=== PATIENT | male | born 1950 | race Hispanic/Latino ===

== ENCOUNTER → 2016-11-20 | Outpatient (CLI) | payer SELFPAY | END | disposition home or self-care (01) | LOC: NUC 08:16 | DX: R07.9 Chest pain, unspecified (principal); I65.29 Occlusion and stenosis of unspecified carotid artery; E78.2 Mixed hyperlipidemia | CPT/HCPCS: 78452; 93017; A9500 ==

== ENCOUNTER 2016-12-17 09:40 | Day surgery (SDC) | payer SELFPAY ==
[2016-12-17] MEDS ORDERED: LOVASTATIN20 MG PO (10:31)
[2016-12-17] MEDS ORDERED: CYFOLEX CAPSUL1 EACH PO (10:31)
[2016-12-17] MEDS ORDERED: CHILD ASPIRIN81 M1 PO (10:31)
[2016-12-17 10:47] LABS: HEMATOCRIT 42.4 % (38.0-50.0); MCH 32.7 PG (29.0-34.0); MCHC 34.7 G/DL (30.0-36.0); MCV 94.2 FL (86-99); MEAN PLAT.VOLUME 8.9 uM^3 (9.0-12.4); PLATELET COUNT 246 K/uL (156-360); RBC DIS.WIDTH-CV 12.1 % (11.8-14.6); RBC DIS.WIDTH-SD 42.3 % (39-53); WHITE BLOOD COUNT 6.6 K/uL (4.1-10.2)
[2016-12-17 11:04] LABS: ANION GAP 6 MEQ/L (2-14); CHLORIDE 106 MEQ/L (99-109); POTASSIUM 3.8 MEQ/L (3.7-5.4); SAMPLE HEMOLYSIS CHECK 0; SAMPLE ICTERIC CHECK 0; SAMPLE LIPEMIA CHECK 0; SODIUM 139 MEQ/L (136-147)
[2016-12-17 11:10] LABS: GFR ESTIMATE (CALCULATED) > 59 mL/min/; GLUCOSE 88 mg/dL (70-99); UREA NITROGEN (BUN) 11 mg/dL (9-23)
== END 2016-12-17 15:35 | disposition home or self-care (01) ==
LOC: CATH 09:40
PROVIDERS: Internal Medicine Cardiovascular Disease
DX: R07.9 Chest pain, unspecified (principal); I65.29 Occlusion and stenosis of unspecified carotid artery; E78.5 Hyperlipidemia, unspecified; I34.0 Nonrheumatic mitral (valve) insufficiency; Z79.82 Long term (current) use of aspirin; Z82.49 Family history of ischemic heart disease and other diseases of the circulatory system
CPT/HCPCS: 80048; 85027; C1769; C1887; J1644; J2250; J3010

== ENCOUNTER 2016-12-28 22:41 | Emergency (ER) | payer SELFPAY ==
[~2016-12-28] VITALS: Ht 167.6 cm; Wt 67.5 kg
[~2016-12-28 22:41] MED LIST: CHILD ASPIRIN81 M1 PO; CYFOLEX CAPSUL1 EACH PO; LOVASTATIN20 MG PO
[2016-12-28] MEDS ORDERED: MOTRIN800 MG PO (23:40)
[2016-12-29 00:20] VITALS: BP 150/86
== END 2016-12-29 00:22 | disposition home or self-care (01) ==
LOC: EME 22:41
DX: S90.122A Contusion of left lesser toe(s) without damage to nail, initial encounter (principal); S93.505A Unspecified sprain of left lesser toe(s), initial encounter; W22.09XA Striking against other stationary object, initial encounter; E78.5 Hyperlipidemia, unspecified; I10 Essential (primary) hypertension
CPT/HCPCS: 73630; 99281; 99284